=== PATIENT | male | born 1990 | race Caucasian/White ===

== ENCOUNTER 2020-10-09 19:56 | Emergency (ER) | payer BC, SELFPAY | END 2020-10-09 20:31 | disposition home or self-care (01) | LOC: MADERS 19:56 | DX: J06.9 Acute upper respiratory infection, unspecified (principal); F17.200 Nicotine dependence, unspecified, uncomplicated | CPT/HCPCS: 71045 ==

== ENCOUNTER 2022-11-29 10:37 | Emergency (ER) | payer BC, SELFPAY ==
[2022-11-29] MEDS ORDERED: Bacitracin 1 PK ONE (11:06)
[2022-11-29] MEDS ORDERED: Boostrix 0.5 ML (Tdap) VIAL (>/=7 yrs of age) ONE (11:06)
[2022-11-29] MEDS ORDERED: Lidocaine 1% w/Epinephrine 1:100K 20 ML VIAL ONE (11:06)
[2022-11-29] MEDS ORDERED: Lidocaine 1% PF 5 ML VIAL ONE (11:16)
== END 2022-11-29 11:43 | disposition home or self-care (01) ==
LOC: MADERS 10:37
DX: S51.011A Laceration without foreign body of right elbow, initial encounter (principal); Z87.891 Personal history of nicotine dependence; Z23 Encounter for immunization; W27.0XXA Contact with workbench tool, initial encounter
CPT/HCPCS: 12001; 90471; 90715